=== PATIENT | male | born 1975 | race Caucasian/White ===

== ENCOUNTER 2017-02-03 12:13 | Emergency (ER) | payer OTHER, MEDICARE ==
[~2017-02-03] VITALS: Ht 177.8 cm; Wt 80.0 kg
[2017-02-03 12:15] VITALS: BP 123/82; PULSE 69; RESP 14; TEMP 98.3; O2SAT 98
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
[2017-02-03] MEDS ORDERED: LIDO5%T TOPICAL (12:47)
[2017-02-03] MEDS ORDERED: TRAM50TA PO (12:47)
[2017-02-03] MEDS ORDERED: XANA1TAB2 PO (12:47)
[2017-02-03] MEDS ORDERED: GABA800T PO (12:47)
[2017-02-03] MEDS ORDERED: DIVA250T PO (12:51)
[2017-02-03] MEDS ORDERED: CARB200T PO (12:51)
[2017-02-03] MEDS ORDERED: SODIUM CHLORIDE 0.9% FLUSH 5 ML FLUSH IV FLUSH PRN (13:00)
== END 2017-02-03 13:13 | disposition left against medical advice (07) ==
LOC: NEPD 12:13
DX: R51 Headache (principal)
CPT/HCPCS: 99281